=== PATIENT | female | born 1975 | race Caucasian/White ===

== ENCOUNTER → 2021-06-02 | Outpatient (CLI) | payer BC ==
--- NOTE | 2021-06-04 13:12 | Diagnostic Imaging Report ---
Indication: 2-D and 3-D digital screening with CAD. COMPARISON: 03/2018 and 02/2016 FINDINGS: Scattered fibrolinear densities in the breasts showed no interval change. No breast mass, spiculated lesion, architectural distortion or suspicious calcifications. No findings of malignancy. IMPRESSION: Stable negative mammograms BI-RADS Category 1 ACR BI-RADS Category 1: Negative. Result letter will be mailed to the patient. Note: At least 10% of breast cancer is not imaged by mammography. Dictated by: Dictated on workstation # [id number]
== END ==
LOC: RAD 09:04
PROVIDERS: ATTEND Obstetrics & Gynecology
DX: Z12.31 Encounter for screening mammogram for malignant neoplasm of breast (principal)
CPT/HCPCS: 77063; 77067

== ENCOUNTER → 2023-10-11 | Outpatient (CLI) | payer BC ==
[~2023-10-11] VITALS: Ht 162.6 cm; Wt 102.3 kg
[~2023-10-11] MED LIST: ATOR20TA66 PO
== END | disposition home or self-care (01) ==
LOC: PREOP 05:32
PROVIDERS: ATTEND Obstetrics & Gynecology
DX: Z01.818 Encounter for other preprocedural examination (principal)